=== PATIENT | female | born 1955 | race Caucasian/White ===

== ENCOUNTER 2021-09-29 00:46 | Emergency (ER) | payer MEDICARE, OTHER ==
[~2021-09-29] VITALS: Ht 165.1 cm; Wt 108.9 kg
[~2021-09-29 00:46] MED LIST: CLINDAMYCIN HC300 MG PO; DILAUDID2 MG PO; HYDROCHLOROTH12.5 M1 PO; HYDROCHLOROTHIA25 MG PO; HYDROCODON-ACE1 EAC8 PO; HYDROMORPHONE HC2 MG PO; IBUPROFEN800 MG PO; LISINOPRIL20 MG PO; LISINOPRIL40 MG PO; NORCO 5-325 TA1 EACH PO; ZOFRAN ODT4 MG PO
[2021-09-29] MEDS ORDERED: CYMBALTA20 MG PO (00:59)
[2021-09-29] MEDS ORDERED: OXYBUTYNIN CHLOR5 MG PO (01:00)
[2021-09-29] MEDS ORDERED: PREVACID15 M1 PO (01:00)
== END 2021-09-29 02:25 | disposition home or self-care (01) ==
LOC: ED 00:46
DX: I10 Essential (primary) hypertension (principal); R51.9 Headache, unspecified; Z88.2 Allergy status to sulfonamides; Z79.899 Other long term (current) drug therapy
CPT/HCPCS: 70450; 96374; 99284-25

== ENCOUNTER 2022-12-21 15:22 | Emergency (ER) | payer MEDICARE, OTHER ==
[~2022-12-21] VITALS: Ht 165.1 cm; Wt 108.9 kg
[~2022-12-21 15:22] MED LIST changes: +CYMBALTA20 MG PO; +OXYBUTYNIN CHLOR5 MG PO; +PREVACID15 M1 PO
[2022-12-21] MEDS ORDERED: MYRBETRIQ25 MG PO (16:27)
[2022-12-21] MEDS ORDERED: DILAUDID2 MG PO (18:06)
[2022-12-21 18:35] VITALS: BP 170/90
== END 2022-12-21 18:37 | disposition home or self-care (01) ==
LOC: ED 15:22
DX: S52.122A Displaced fracture of head of left radius, initial encounter for closed fracture (principal); W18.30XA Fall on same level, unspecified, initial encounter; I10 Essential (primary) hypertension; Z88.2 Allergy status to sulfonamides; Z79.899 Other long term (current) drug therapy
CPT/HCPCS: 29105; 73070; 73080; 99283-25; A9270